=== PATIENT | male | born 1945 | race Caucasian/White ===

== ENCOUNTER 2019-04-30 11:15 | Observation (INO) | payer OTHER ==
[~2019-04-30] VITALS: Ht 172.7 cm; Wt 67.1 kg
[~2019-04-30 11:15] MED LIST: ACETAMINOPHEN325 M1 PO; ACIDOPHILUS1 EAC3 PO; ACIDOPHILUS1 EACH PO; ADULT LOW DOSE81 MG PO; BENADRYL ALLERG25 MG PO; BENAZEPRIL HCL5 MG PO; CARVEDILOL12.5 MG PO; CARVEDILOL25 MG PO; CHOLESTOFF; CINNAMON; CLINDAMYCIN HC150 MG PO; CO Q-10100 MG PO; COLACE100 MG PO; CRESTOR10 MG PO; Cinnamon PO; DAILY VALUE1 EACH PO; ESTER C; Ester C RECTAL; FAMOTIDINE20 MG PO; FLAXSEED OIL1000 MG PO; FOLIC ACID PO; FOLIC ACID1 MG PO; GLUCOPHAGE500 MG PO; HYDROCODONE-AP1 EAC6 PO; KEFLEX500 MG PO; KEPPRA 500 MG500 M1 PO; LECITHIN; LEVSIN; LOTREL 5-10 MG1 EACH PO; Lecithin PO; MAGNESIUM OXID200 MG PO; MAGOX 400400 MG PO; MELATONIN3 MG PO; MILK THISTLE175 M2 PO; MILK THISTLE500 MG PO; Milk Thistle PO; NIASPAN 500 MG500 M1 PO; NIASPAN PO; NITROSTAT0.4 MG SL; NORVASC 5 MG TAB5 MG PO; OMEPRAZOLE PO; PLAVIX 75 MG TA75 MG PO; PRILOSEC 20 MG20 MG PO; RESVERATROL50 MG PO; STOOL SOFTENER1 EAC1 PO; TAMIFLU75 MG PO; TRANSPORT CHAI1 EACH MC; ZETIA10 MG PO
[2019-04-30 11:22] VITALS: BP 169/96
[2019-04-30] MEDS ORDERED: FLAXSEED OIL1000 MG PO (11:31)
[2019-04-30] MEDS ORDERED: ESTER-C 500 MG1 EACH PO (11:32)
[2019-04-30] MEDS ORDERED: CINNAMON OIL480 ML PO (11:32)
[2019-04-30] MEDS ORDERED: SELENIUM SULFI120 M1 PO (11:33)
[2019-04-30] MEDS ORDERED: PRILOSEC2.5 MG PO (11:33)
[2019-04-30] MEDS ORDERED: STOOL SOFTENER100 MG PO (11:33)
[2019-04-30 12:11] LABS: ABSOLUTE BASOPHILS 0.1 thou/uL (0.0-0.2); ABSOLUTE MONOCYTES 0.5 thou/uL (0.0-1.2); ABSOLUTE NEUTROPHILS 4.1 thou/uL (1.6-8.1); BASOPHILS 1.2 %; EOSINOPHILS 0.7 %; HEMATOCRIT 38.5 % (42.0-52.0); HEMOGLOBIN 13.3 gm/dL (14.0-18.0); LYMPHOCYTES 17.4 %; MCHC 34.5 g/dL (28.0-37.0); MONOCYTES 9.2 %; MPV 7.4 fl. (7.2-11.1); NUCLEATED RBCS 0 /100WBC; PLATELET COUNT* 155 thou/uL (150-400); POLYS 71.5 %; RBC 4.28 mil/uL (4.50-6.00); RDW-CV 15.2 % (10.5-14.5); WBC 5.7 thou/uL (4.0-11.0)
[2019-04-30 12:20] LABS: APTT 29.1 Seconds (25.0-31.3); CALCIUM 9.2 mg/dL (8.5-10.1); CREATININE 0.5 mg/dL (0.6-1.3); INR 1.1; POTASSIUM 3.8 mmol/L (3.5-5.1); PROTIME 11.5 Seconds (9.20-11.50)
[2019-04-30 12:28] LABS: URINE BILIRUBIN NEGATIVE (Negative); URINE BLOOD NEGATIVE (Negative); URINE CLARITY CLEAR; URINE COLOR YELLOW; URINE GLUCOSE-RANDOM NEGATIVE (Negative); URINE KETONES NEGATIVE (Negative); URINE LEUKOCYTES-REFLEX NEGATIVE (Negative); URINE NITRITE-REFLEX NEGATIVE (Negative); URINE PROTEIN NEGATIVE (Negative); URINE UROBILINOGEN 0.2 E.U./dl (0.2-1.0)
[2019-04-30 12:31] LABS: TOTAL PROTEIN 7.8 g/dL (6.4-8.2)
--- NOTE | 2019-04-30 15:54 | EKG ---
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 : 1945 Requested By: Vitaliy Pickens Order Number: [id number] MD: Sai García Measurements Intervals [place] Rate: 84 P: 40 KS: 129 QRS: -121 QRSD: 175 T: 14 QT: 422 QTc: 499 Interpretive Statements Sinus rhythm previous inferior infarction Ventricular trigeminy Right bundle branch block Compared to ECG 03/04/2014 13:02:47 pvc's have decreased Electronically Signed On 04-30-2019 15:52:57 PATIENT TRANSPORTER by Sai García [email or web address] <ELECTRONICALLY SIGNED> By: Sai García MD, [facility] 04/30/19 1552 1154 1154 Sai García MD, [facility] /EPI
--- NOTE | 2019-04-30 16:45 | 2DMMODE ---
[place] [address] 2 D/M-MODE ECHOCARDIOGRAM Name: ADITYA CALVILLO Room: [address] MLara#: [id number] Admission: 04/30/19 Attend Phys: Christiano Mckeon, Discharge: Date of : 41 Date of Service: 04/30/19 1644 Report #: [id number] THIS REPORT FOR: cc: Juan Flores Russell J. DO Blick,Sai Mccartney MD [facility] ~ APPROVED REPORT Study performed: 04/30/2019 14:38:26 EXAM: Comprehensive 2D, Doppler, and color-flow Echocardiogram Patient Location: In-Patient Room #: er Status: routine BSA: 1.80 HR: 79 bpm BP: 149/78 mmHg Rhythm: NSR Other Information Study Quality: Excellent Indications Dyspnea Pleural Effusion 2D Dimensions IVSd: 10.47 (7-11mm) LVOT Diam: 21.66 (18-24mm) LVDd: 60.28 mm PWd: 9.93 (7-11mm) Ascending Ao: 31.75 (22-36mm) LVDs: 47.08 (25-40mm) Aortic Root: 36.38 mm Volumes Left Atrial Volume (Systole) LA ESV Index: 50.20 mL/m2 Aortic Valve AoV Peak Héctor.: 0.83 m/s AO Peak Gr.: 2.76 mmHg LVOT Max P.89 mmHg AO Mean Gr.: 1.53 mmHg LVOT Mean P.97 mmHg LVOT Max V: 0.69 m/s AO V2 VTI: 14.67 cm LVOT Mean V: 0.45 m/s POWER (VTI): 3.14 cm2 LVOT V1 VTI: 12.51 [place] [address] 2 D/M-MODE ECHOCARDIOGRAM Name: ADITYA CALVILLO Room: [address] M.RMile#: [id number] Admission: 04/30/19 Attend Phys: Christiano Mckeon, Discharge: Date of : 41 Date of Service: 04/30/19 1644 Report #: [id number] TDI Lateral E' Héctor.: 0.10 m/s Pulmonary Valve PV Peak Héctor.: 0.94 m/s PV Peak Gr.: 3.52 mmHg Tricuspid Valve RAP Estimate: 5.00 mmHg TR Peak Gr.: 44.32 mmHg RVSP: 49.00 mmHg PA Pressure: 49.00 mmHg Left Ventricle Left ventricle is mildly dilated. There is global hypokinesis of the left ventricle. There is normal left ventricular wall thickness. Left ventricular systolic function is severely decreased. LVEF is 25-30%. Right Ventricle Right ventricle is dilated. The right ventricular systolic function is normal. Atria Left atrium is severely dilated. Right atrium is dilated. Aortic Valve Mild aortic valve sclerosis. No aortic regurgitation is present. There is no aortic valvular stenosis. Mitral Valve The mitral valve is normal in structure. Mild mitral regurgitation. No evidence of mitral valve stenosis. Tricuspid Valve The tricuspid valve is normal in structure. Mild tricuspid regurgitation. estimated pa pressure 55 mm Hg Pulmonic Valve The pulmonary valve is normal in structure. Mild pulmonic regurgitation. Great Vessels The aortic root is normal in size. IVC is normal in size and collapses >50% with inspiration[place] [address] 2 D/M-MODE ECHOCARDIOGRAM Name: ADITYA CALVILLO Room: [address]#: [id number] Admission: 04/30/19 Attend Phys: Christiano Mckeon, Discharge: Date of : 41 Date of Service: 04/30/191643 Report #: [id number] There is no pericardial effusion. Large left pleural effusion. <Conclusion> Left ventricle is mildly dilated. LVEF is 25-30%. Right ventricle is dilated. Left atrium is severely dilated. Mild aortic valve sclerosis. Mild mitral regurgitation. Mild tricuspid regurgitation. estimated pa pressure 55 mm Hg <ELECTRONICALLY SIGNED> By: Sai García MD, [facility] 04/30/191643 43 43 Sai García MD, FACC /INF
[2019-04-30 17:06] VITALS: BP 128/64
--- NOTE | 2019-04-30 19:30 | NUR ---
PT C/O CRAMPS ORDER OBTAINED AND MEDICATIONS GIVEN INSTRUCTED
[2019-04-30 21:00] VITALS: BP 129/66
[2019-04-30 21:45] VITALS: BP 121/66
[2019-04-30 22:30] VITALS: BP 144/86
--- NOTE | 2019-04-30 23:39 | NUR ---
REPORT RECIEVED FROM ER. PT ORIENTED TO ROOM, CALL LIGHT SHOWN, FALL AGREEMENT WENT OVER, PT STATED UNDERSTANDING. I HAVE REVIEWED THE ASSESSMENT OF JORDY ROSS, I CONCUR WITH HER DOCUMENTATION. PT IN BED RESTING, FALL PRECAUTIONS IN PLACE. WILL CONTINUE WITH PLAN OF CARE.
[2019-05-01 04:00] VITALS: BP 133/50
--- NOTE | 2019-05-01 05:15 | NUR ---
PT SLEPT MOST OF SHIFT. ASSESSMENT DOCUMENTED. MEDS GIVEN PER E-APR. IV PATENT. NO REPORTS OF PAIN THIS SHIFT. PTS HR DROPPING TO 30'S WHILE SLEEPING, THEN RETURNING TO 50'S-60'S. DR NOTIFIED. SLEEP MEDS GIVEN PER PT REQUEST. FALL PRECAUTIONS IN PLACE, WILL CONTINUE WITH PLAN OF CARE.
[2019-05-01 05:57] LABS: ANION GAP 11 mmol/L (7-16); BUN 18 mg/dL (7-18); CHLORIDE 107 mmol/L (98-107); CO2 28 mmol/L (21-32); CREATININE 0.7 mg/dL (0.6-1.3); GLUCOSE 100 mg/dL (70-99); SODIUM 146 mmol/L (136-145)
[2019-05-01 06:10] LABS: CHOLESTEROL 108 mg/dL (<200); HDL CHOLESTEROL 36 mg/dL (>40); LDL CHOLESTEROL 57 mg/dL (<100); TRIGLYCERIDE 79 mg/dL (<150); VLDL 16 mg/dL (<40)
[2019-05-01 06:11] LABS: SERUM ASSESSMENT Clear
[2019-05-01 08:53] VITALS: BP 136/73
--- NOTE | 2019-05-01 09:39 | CON ---
[address] [address] CONSULTATION Name: ADITYA CALVILLO Room: [address] Christian#: [id number] Admission: 04/30/19 Attend Phys: Christiano Mckeon MD Discharge: Date of : 41 Report #: [id number] THIS REPORT FOR: //name// cc: Juan Flores Russell J. DO ~ THIS REPORT FOR: //name// CC: Christiano Flores DO DATE OF SERVICE: 04/30/2019 CARDIOLOGY CONSULTATION HISTORY OF PRESENT ILLNESS: The patient is a 73-year-old white male who I was asked to see in the Emergency Room today after he complained of chest pain. The patient has an extensive and complicated past medical history. The patient apparently had previous angioplasty of the right coronary artery. He eventually underwent coronary artery bypass surgery years ago at [facility]. He was found to have evidence of an ischemic cardiomyopathy. Subsequent heart catheterization showed the vein graft to the right coronary artery was occluded. There is a patent PARKS graft to the LAD. Previous ejection fraction of 35%. He is not very active at this time because of his age. Recently, he has had no significant chest pain. However, he has had a cough recently. He was given antibiotics. However, for the past 2 weeks, he has had increasing shortness of breath, orthopnea, and some edema. He denied any fever. He came to the Emergency Room today and was admitted. He denied any palpitation or syncope. PAST MEDICAL HISTORY: Otherwise significant for cataract extraction, appendectomy, hypertension, diabetes, hyperlipidemia. CURRENT MEDICATIONS: Consist of amlodipine, Plavix, Keppra for history of seizures, metformin, Crestor, Lotensin, carvedilol, aspirin. ALLERGIES: HE HAS AN ALLERGY TO MORPHINE. FAMILY HISTORY: Positive for heart disease. SOCIAL HISTORY: He is . He and his live in [place]. 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 Quit smoking years ago. No alcohol abuse. REVIEW OF SYSTEMS: He apparently had TIA after his open heart surgery. No history of asthma, peptic ulcer disease, liver disease, kidney disease, cancer, psychiatric illness, [place] [address] CONSULTATION Name: ADITYA CALVILLO Room: [address] Christian#: [id number] Admission: 04/30/19 Attend Phys: Christiano Mckeon MD Discharge: Date of : 41 Report #: [id number] PHYSICAL EXAMINATION: GENERAL: Revealed an elderly, frail-appearing male, lying in bed. He appeared in no distress. VITAL SIGNS: He had a blood pressure of 140/80, pulse 90, and he is afebrile. HEENT: He was anicteric. Conjunctivae are pink. Mucous membranes moist. NECK: Veins nondistended. Neck was supple. CHEST: Clear to auscultation. CARDIOVASCULAR: Regular rate and rhythm. ABDOMEN: Soft. EXTREMITIES: Had no edema. Posterior tibial pulse 1+ bilaterally. SKIN: Warm, dry. NEUROLOGIC: Nonfocal. LABORATORY DATA: His ECG showed a sinus rhythm, occasional PVC, evidence of previous inferior infarction, left anterior fascicular block and a right bundle-branch block. His x-ray in the Emergency Room today showed small effusion, right infiltrate, cardiomegaly, mild vascular congestion. He had a CT scan of the head performed today in the Emergency Room because of headache that showed atrophy, old previous stroke. His last stress test is not available at this time, although he had a nuclear stress test in 2018 that showed a fixed inferior defect. Last echocardiogram showed an ejection fraction 45%. His lab work in the Emergency Room today; sodium 143, creatinine 0.5. Liver function studies were normal. Troponin 0.06. BNP 5572. TSH 1.3. His white blood cell count 5.7, hematocrit 38.5. IMPRESSION AND RECOMMENDATIONS: 1. Acute on chronic systolic heart failure. Recommend repeat echocardiogram. The patient has been on a beta cecille and GUI inhibitor. 2. Diabetes. The patient is on oral medications. 3. Hyperlipidemia. The patient is on a statin drug. 4. Previous stroke following surgery. The patient apparently is on Plavix. 5. History of seizures. 6. Hard of hearing. <ELECTRONICALLY SIGNED> By: Sai García MD, FACC 05/01/19 0939 1432 [id number] García MD, FAC /nt
[2019-05-01] MEDS ORDERED: NEXIUM40 MG PO (11:07)
[2019-05-01] MEDS ORDERED: CARVEDILOL12.5 MG PO (11:07)
[2019-05-01] MEDS ORDERED: SPIRONOLACTONE25 MG PO (11:07)
[2019-05-01] MEDS ORDERED: LASIX 20 MG TAB20 MG PO (11:07)
[2019-05-01] MEDS ORDERED: KLOR-CON 1010 MEQ PO (11:07)
[2019-05-01 11:37] VITALS: BP 110/62
[2019-05-01] MEDS ORDERED: LASIX 40 MG TAB40 MG PO (16:06)
--- NOTE | 2019-05-01 16:44 | NUR ---
ASSUMED CARE OF PT APPROX 0730. REASSESSMENT COMPLETED CHARTED. MEDICATIONS GIVEN CHARTED. PLAN OF CARE DISCUSSED WITH PT AND SPOUSE. PT COMMUNICATED UNDERSTANDING. SAFTEY PRECAUTIONS UTILIZED, HOURLY ROUNDED. DISCHARGE TEACH COMPLETED WITH PT, PT VERBALIZED UNDERSTANDING. PT ESCORTED TO VEHICLE WITH STAFF APPROX 1640.
== END 2019-05-01 16:40 | disposition home or self-care (01) ==
LOC: M.ERS 11:15 → M.2W 13:29 → M.TBA-ER 13:29 → M.2W 22:03
PROVIDERS: Family Medicine; ADMIT Internal Medicine
DX: I11.0 Hypertensive heart disease with heart failure (principal); I50.23 Acute on chronic systolic (congestive) heart failure; I25.10 Atherosclerotic heart disease of native coronary artery without angina pectoris; K21.9 Gastro-esophageal reflux disease without esophagitis; E11.9 Type 2 diabetes mellitus without complications; I27.20 Pulmonary hypertension, unspecified; J34.2 Deviated nasal septum; Z86.73 Personal history of transient ischemic attack (TIA), and cerebral infarction without residual deficits; Z87.891 Personal history of nicotine dependence; Z95.1 Presence of aortocoronary bypass graft

== ENCOUNTER 2020-10-21 08:46 | Inpatient (IN) | payer OTHER ==
[~2020-10-21] VITALS: Ht 172.7 cm; Wt 67.1 kg
[~2020-10-21 08:46] MED LIST changes: +CINNAMON OIL480 ML PO; +ESTER-C 500 MG1 EACH PO; +KLOR-CON 1010 MEQ PO; +LASIX 20 MG TAB20 MG PO; +LASIX 40 MG TAB40 MG PO; +NEXIUM40 MG PO; +PRILOSEC2.5 MG PO; +SELENIUM SULFI120 M1 PO; +SPIRONOLACTONE25 MG PO; +STOOL SOFTENER100 MG PO
[2020-10-21 08:56] VITALS: BP 106/66
[2020-10-21 09:27] LABS: ABSOLUTE LYMPHOCYTES 1.1 thou/uL (0.8-5.3); ABSOLUTE MONOCYTES 0.5 thou/uL (0.0-1.2); ABSOLUTE NEUTROPHILS 4.4 thou/uL (1.6-8.1); BASOPHILS 0.5 %; EOSINOPHILS 0.7 %; HEMATOCRIT 36.6 % (42.0-52.0); LYMPHOCYTES 18.5 %; MCH 30.4 pg (26.0-34.0); MCHC 32.7 g/dL (28.0-37.0); MCV 92.9 fL (80.0-100.0); MONOCYTES 8.3 %; MPV 7.5 fl. (7.2-11.1); NUCLEATED RBCS 0 /100WBC; PLATELET COUNT* 154 thou/uL (150-400); RBC 3.94 mil/uL (4.50-6.00); WBC 6.1 thou/uL (4.0-11.0)
[2020-10-21 09:31] LABS: CALCIUM 9.6 mg/dL (8.5-10.1); CREATININE 1.3 mg/dL (0.6-1.3); POTASSIUM 4.8 mmol/L (3.5-5.1)
[2020-10-21 09:42] LABS: ALBUMIN 4.5 g/dL (3.4-5.0); TOTAL BILIRUBIN 0.5 mg/dL (<0.1-1.0)
[2020-10-21 15:06] LABS: CHOLESTEROL 104 mg/dL (<200); HDL CHOLESTEROL 43 mg/dL (>40); LDL CHOLESTEROL 42 mg/dL (<100); TC:HDL 2.4 Ratio (Not establshd); TRIGLYCERIDE 99 mg/dL (<150); VLDL 20 mg/dL (<40)
[2020-10-21 15:07] LABS: SERUM ASSESSMENT Clear
[2020-10-21 16:03] VITALS: BP 100/58
--- NOTE | 2020-10-21 16:56 | 2DMMODE ---
[place] [address] 2 D/M-MODE ECHOCARDIOGRAM Name: ADITYA CALVILLO Room: [address] [facility] IN [facility]#: [id number] Admission: 10/21/20 Attend Phys: Edison Muse Discharge: Date of : 41 Date of Service: 10/21/20 1656 Report #: [id number] THIS REPORT FOR: cc: Juan Flores Russell J. DO Liston, Michael J. MD [facility] ~ APPROVED REPORT Study performed: 10/21/2020 15:24:31 EXAM: Comprehensive 2D, Doppler, and color-flow Echocardiogram Patient Location: In-Patient Room #: ER Status: routine BSA: 1.85 HR: 99 bpm BP: 107/75 mmHg Rhythm: Atrial Fibrillation Other Information Study Quality: Good Indications Atrial Fibrillation 2D Dimensions IVSd: 12.23 (7-11mm) LVOT Diam: 21.28 (18-24mm) LVDd: 56.37 mm PWd: 11.64 (7-11mm) Ascending Ao: 29.37 (22-36mm) LVDs: 45.50 (25-40mm) Aortic Root: 35.36 mm Volumes Left Atrial Volume (Systole) LA ESV Index: 51.10 mL/m2 Aortic Valve AoV Peak Héctor.: 1.05 m/s AO Peak Gr.: 4.40 mmHg LVOT Max P.63 mmHg AO Mean Gr.: 2.60 mmHg LVOT Mean P.89 mmHg LVOT Max V: 0.64 m/s AO V2 VTI: 20.01 cm LVOT Mean V: 0.44 m/s POWER (VTI): 2.13 cm2 LVOT V1 VTI: 11.99 [place] [address] 2 D/M-MODE ECHOCARDIOGRAM Name: ADITYA CALVILLO Room: [address] IN ..#: [id number] Admission: 10/21/20 Attend Phys: Edison Muse Discharge: Date of : 41 Date of Service: 10/21/20 1656 Report #: [id number] TDI Lateral E' Héctor.: 0.14 m/s Pulmonary Valve PV Peak Héctor.: 0.82 m/s PV Peak Gr.: 2.68 mmHg Tricuspid Valve RAP Estimate: 10.00 mmHg TR Peak Gr.: 38.15 mmHg RVSP: 48.00 mmHg PA Pressure: 48.00 mmHg Left Ventricle The left ventricle is normal size. There is moderate global hypokinesis There is normal left ventricular wall thickness. Left ventricular systolic function is moderately decreased. LVEF is 35-40%. This study is not technically sufficient to allow evaluation of the LV diastolic function due to atrial fibrillation. Right Ventricle Right ventricle is dilated. The right ventricular systolic function is normal. Atria Left atrium is severely dilated. Right atrium is moderately dilated. Aortic Valve The aortic valve is normal in structure. No aortic regurgitation is present. There is no aortic valvular stenosis. Mitral Valve The mitral valve is normal in structure. Moderate mitral regurgitation. No evidence of mitral valve stenosis. Tricuspid Valve The tricuspid valve is normal in structure. Moderate tricuspid regurgitation. Moderate pulmonary hypertension. The RVSP is 45-50 mmHg. Pulmonic Valve The pulmonary valve is normal in structure. Mild pulmonic regurgitation. Great Vessels The aortic root is normal in size. The [place] [address] 2 D/M-MODE ECHOCARDIOGRAM Name: KARLIADITYA Ernie Room: [address] IN [facility].#: [id number] Admission: 10/21/20 Attend Phys: Edison Muse Discharge: Date of : 41 Date of Service: 10/21/20 1656 Report #: [id number] Pericardium There is no pericardial effusion. <Conclusion> The left ventricle is normal size. There is normal left ventricular wall thickness. Left ventricular systolic function is moderately decreased. LVEF is 35-40%. This study is not technically sufficient to allow evaluation of the LV diastolic function due to atrial fibrillation. There is moderate global hypokinesis Right ventricle is dilated. Left atrium is severely dilated. Right atrium is moderately dilated. Moderate mitral regurgitation. Moderate tricuspid regurgitation. Moderate pulmonary hypertension. The RVSP is 45-50 mmHg. The IVC is dilated. <ELECTRONICALLY SIGNED> By: Dougie Rojo MD, FACC 10/21/201655 55 55 Dougie Rojo MD, FACC /INF
[2020-10-21 19:28] VITALS: BP 92/47
[2020-10-21 22:56] VITALS: BP 110/65
[2020-10-22] VITALS (22 sets, daily range): BP systolic 86–117; BP diastolic 48–87
[2020-10-22 01:18] LABS: HEMATOCRIT 35.4 % (42.0-52.0); HEMOGLOBIN 11.9 gm/dL (14.0-18.0); MCH 30.9 pg (26.0-34.0); MCHC 33.5 g/dL (28.0-37.0); MCV 92.1 fL (80.0-100.0); MPV 7.7 fl. (7.2-11.1); RBC 3.84 mil/uL (4.50-6.00); RDW-CV 13.2 % (10.5-14.5)
[2020-10-22 01:25] LABS: CALCIUM 9.3 mg/dL (8.5-10.1); CREATININE 1.5 mg/dL (0.6-1.3); POTASSIUM 4.1 mmol/L (3.5-5.1)
--- NOTE | 2020-10-22 11:15 | EKG ---
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 : 1945 Requested By: Vitaliy Pickens Order Number: [id number] MD: Aditya Quinones Measurements Intervals [place] Rate: 98 P: ID: QRS: -89 QRSD: 162 T: 32 QT: 419 QTc: 536 Interpretive Statements Atrial fibrillation Ventricular premature complex Right bundle branch block Inferior infarct, old Compared to ECG 04/30/2019 11:54:54 Sinus rhythm no longer present Myocardial infarct finding still present Electronically Signed On 10-22-2020 11:15:08 CDT by Aditya Quinones [email or web address] <ELECTRONICALLY SIGNED> By: Aditya Quinones MD, [facility] 10/22/20 1115 0913 2 Aditya Quinones MD, [facility] /EPI
[2020-10-22] MEDS ORDERED: PACERONE 200 M200 M1 PO (13:59)
[2020-10-22] MEDS ORDERED: ELIQUIS5 MG PO (13:59)
[2020-10-22] MEDS ORDERED: CARVEDILOL3.125 MG PO (13:59)
--- NOTE | 2020-10-22 15:32 | EKG ---
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 : 1945 Requested By: Roopa Rodriguez Order Number: [id number] Archana MD: Aditya Quinones Measurements Intervals [place] Rate: 77 P: 87 IN: 70 QRS: -91 QRSD: 169 T: 30 QT: 467 QTc: 529 Interpretive Statements Sinus rhythm Atrial premature complexes with aberrancy Short IN interval Right bundle branch block Possible inferior scar Compared to ECG 10/21/2020 09:13:33 Atrial premature complex(es) now present Atrial fibrillation no longer present Ventricular premature complex(es) no longer present Electronically Signed On 10-22-2020 15:31:53 CDT by Aditya Quinones [email or web address] <ELECTRONICALLY SIGNED> By: Aditya Quinones MD, [facility] 10/22/20 1531 1435 1435 Aditya Quinones MD, [facility] /EPI
--- NOTE | 2020-10-22 17:29 | TEE ---
[place] [address] TRANSESOPHAGEAL ECHOCARDIOGRAM Name: ADITYA CALVILLO [address] [id number] Admission: 10/21/20 Attend Phys: Edison Muse Discharge: 10/22/20 Date of : 41 Date of Service: 10/22/20 1729 Report #: [id number] THIS REPORT FOR: cc: Juan Flores Russell J. DO Liston, Michael J. MD [facility] ~ APPROVED REPORT Study performed: 10/22/2020 11:45:54 EXAM: Transesophageal Echocardiogram Patient Location: In-Patient Room #: ER Status: routine BSA: 1.80 HR: 89 bpm BP: 117/77 mmHg Rhythm: Atrial Fibrillation Other Information Study Quality: Good Indications Atrial Fibrillation Echo Enhancing Agent Indication: Rule out Shunt Agent(s) / Amount(s) Used: 10 cc Procedure After obtaining informed consent, patient underwent transesophageal echo in the [employer] [facility]. Type of Sedation : Conscious Sedation Sedation was administered by Magnolia Carbajal RN. Sedation start time: 1226 Case end Time: 1240 Sedation was achieved intravenously with: Versed (6) Fentanyl (150) Transesophageal probe was inserted and advanced into esophagus without difficulty by Dougie Rojo MD, FACC. Echo enhancement indication: R/O Septal defect. Echo enhancement agent administered: Agitated Saline The ANDRES was performed without complications. Synchronized Cardioversion acheived with 360 Joules after 2 attempt([place] [address] TRANSESOPHAGEAL ECHOCARDIOGRAM Name: ADITYA CALVILLO Room: [address] Kira Gonzales#: [id number] Admission: 10/21/20 Attend Phys: Edison Muse Discharge: 10/22/20 Date of : 41 Date of Service: 10/22/20 1729 Report #: [id number] Rhythm following Synchronized Cardioversion: SINUS RHYTHM WITH PACS Throughout the procedure, the blood pressure, pulse oximetry, cardiac rhythm, and rate were monitored. The patient tolerated the procedure without adverse effects. Recovery from conscious sedation was uneventful and vital signs were stable. Left Ventricle The left ventricle is normal size. There is global hypokinesis of the left ventricle. There is normal left ventricular wall thickness. Left ventricular ejection fraction is moderate to severely decreased. LVEF is 30-35%. Right Ventricle The right ventricle is normal size. The right ventricular systolic function is normal. Atria Left atrium is mildly dilated. No thrombus is visualized in the left atrium or appendage. The interatrial septum is intact with no evidence for an atrial septal defect. The right atrium size is normal. Aortic Valve The aortic valve is normal in structure. No aortic regurgitation is present. There is no aortic valvular stenosis. Mitral Valve The mitral valve is normal in structure. Moderate mitral regurgitation. No evidence of mitral valve stenosis. Tricuspid Valve The tricuspid valve is normal in structure. Mild tricuspid regurgitation. Pulmonic Valve The pulmonary valve is normal in structure. There is no pulmonic valvular regurgitation. Great Vessels The aortic root is normal in size. Pericardium There is no pericardial effusion. <Conclusion> [place] [address] TRANSESOPHAGEAL ECHOCARDIOGRAM Name: ADITYA CALVILLO Room: [address] Christian#: [id number] Admission: 10/21/20 Attend Phys: Edison Muse Discharge: 10/22/20 Date of : 41 Date of Service: 10/22/201728 Report #: [id number] The left ventricle is normal size. There is normal left ventricular wall thickness. Left ventricular ejection fraction is moderate to severely decreased. LVEF is 30-35%. There is global hypokinesis of the left ventricle. The interatrial septum is intact with no evidence for an atrial septal defect. Left atrium is mildly dilated. No thrombus is visualized in the left atrium or appendage. Moderate mitral regurgitation. Mild tricuspid regurgitation. <ELECTRONICALLY SIGNED> By: Dougie Rojo MD, [facility] 10/22/201728 28 1729 Dougie Rojo MD, FACC /INF
== END 2020-10-22 15:00 | disposition home or self-care (01) | DRG 291 ==
LOC: M.ERS 08:46 → M.TBA-ER 11:09
PROVIDERS: Family Medicine; Registered Nurse; ADMIT Internal Medicine; ATTEND Internal Medicine
PROC: B24BZZ4 Ultrasonography of Heart with Aorta, Transesophageal (ICD-10-PCS; principal; 2020-10-22)
PROC: 5A2204Z Restoration of Cardiac Rhythm, Single (ICD-10-PCS; 2020-10-22)
DX: I13.0 Hypertensive heart and chronic kidney disease with heart failure and stage 1 through stage 4 chronic kidney disease, or unspecified chronic kidney disease (principal); I50.43 Acute on chronic combined systolic (congestive) and diastolic (congestive) heart failure; D68.69 Other thrombophilia; I48.19 Other persistent atrial fibrillation; N18.30 Chronic kidney disease, stage 3 unspecified; E78.5 Hyperlipidemia, unspecified; K21.9 Gastro-esophageal reflux disease without esophagitis; I25.10 Atherosclerotic heart disease of native coronary artery without angina pectoris; I25.5 Ischemic cardiomyopathy; G47.00 Insomnia, unspecified; I95.9 Hypotension, unspecified; Z20.822 Contact with and (suspected) exposure to COVID-19; E11.22 Type 2 diabetes mellitus with diabetic chronic kidney disease; Z98.42 Cataract extraction status, left eye; Z98.41 Cataract extraction status, right eye; Z95.1 Presence of aortocoronary bypass graft; Z86.73 Personal history of transient ischemic attack (TIA), and cerebral infarction without residual deficits; Z88.6 Allergy status to analgesic agent; Z88.8 Allergy status to other drugs, medicaments and biological substances; Z79.82 Long term (current) use of aspirin; Z79.899 Other long term (current) drug therapy

== ENCOUNTER → 2020-10-31 | Outpatient (CLI) | payer OTHER ==
[~2020-10-31] MED LIST changes: +CARVEDILOL3.125 MG PO; +ELIQUIS5 MG PO; +PACERONE 200 M200 M1 PO
[2020-10-31 11:57] LABS: CREATININE 1.8 mg/dL (0.6-1.3); POTASSIUM 5.4 mmol/L (3.5-5.1)
== END ==
LOC: M.LAB 11:20
PROVIDERS: ATTEND Nurse Practitioner
DX: I25.5 Ischemic cardiomyopathy (principal)